=== PATIENT | female | born 1975 | race African-American/Black ===

== ENCOUNTER 2020-05-21 20:38 | Emergency (ER) | payer OTHER ==
[~2020-05-21] VITALS: Ht 177.8 cm; Wt 104.3 kg
[~2020-05-21 20:38] MED LIST: ALLEGRA-D 12 H1 EACH PO; ANTIVERT25 MG PO; CRUTCH1 EACH MC; FLEXERIL PO; IBUPROFEN 800800 M1 PO; NORCO 5-325 TA1 EAC1 PO; NORVASC10 MG PO; PERCOCET 5-3251 EACH PO; VICODIN 5-3001 EACH
[2020-05-21] MEDS ORDERED: HYDROCHLOROTH12.5 M1 PO (20:52)
[2020-05-21 21:12] LABS: HEMATOCRIT 43.4 % (37.0-47.0); HEMOGLOBIN 14.2 gm/dL (12.0-15.0); MCH 29.3 pg (26.0-34.0); MCHC 32.8 g/dL (28.0-37.0); MCV 89.3 fL (80.0-100.0); PLATELET COUNT 255 thou/uL (150-400); RBC 4.86 mil/uL (4.20-5.00); RDW 13.8 % (10.5-14.5); WBC 8.9 thou/uL (4.0-11.0)
[2020-05-21 21:16] LABS: ANION GAP 7 mmol/L (7-16); BUN 14 mg/dL (7-18); CHLORIDE 103 mmol/L (98-107); CO2 28 mmol/L (21-32); CREATININE 0.9 mg/dL (0.6-1.0); GLUCOSE 107 mg/dL (74-106); SODIUM 138 mmol/L (136-145)
[2020-05-21 21:25] LABS: TROPONIN-I <0.06 ng/mL (<0.06)
[2020-05-21 21:51] LABS: ABSOLUTE NEUTROPHILS 3.4 thou/uL (1.4-8.2); PLATELET ESTIMATE NORMAL
[2020-05-21 22:33] VITALS: BP 127/73
--- NOTE | 2020-05-22 07:41 | EKG ---
[facility] [place] [address] ELECTROCARDIOGRAM REPORT Name: BENJAMIN CLOUD Room #: DEP [facility]#: [id number] Admission: 05/21/20 Attend Phys: Discharge: 05/21/20 Date of : 73 Report #: [id number] THIS REPORT FOR: cc: Kirk Nava MD, Gregg R. 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: [facility] : 1975 Requested By: Enmanuel Berkowitz Order Number: [id number] MD: Zuhair Edmonds Measurements Intervals [place] Rate: 102 P: 39 PA: 171 QRS: 43 QRSD: 98 T: -37 QT: 346 QTc: 451 Interpretive Statements Sinus tachycardia Borderline T abnormalities, inferior leads No previous ECG available for comparison Electronically Signed On 05-22-2020 7:40:51 PHOTOENGRAVING SUPERVISOR by Zuhair Edmonds [email or web address] <ELECTRONICALLY SIGNED> By: Zuhair Edmonds MD, FACC 05/22/20 [id number] Zuhair Edmonds MD, [facility] /EPI
== END 2020-05-21 22:46 | disposition home or self-care (01) ==
LOC: ER 20:38
PROVIDERS: Nurse Practitioner
DX: R07.89 Other chest pain (principal); R20.0 Anesthesia of skin; I10 Essential (primary) hypertension; Z90.711 Acquired absence of uterus with remaining cervical stump; Z98.890 Other specified postprocedural states; Z79.899 Other long term (current) drug therapy; Z88.8 Allergy status to other drugs, medicaments and biological substances